=== PATIENT | female | born 1955 | race American Indian/Alaskan Native ===

== ENCOUNTER 2017-01-07 09:00 | Inpatient (IN) | payer OTHER ==
[2017-01-06 09:26] VITALS: BP 129/75
[~2017-01-07] VITALS: Ht 160 cm; Wt 83.0 kg
[~2017-01-07 09:00] MED LIST: ALBU8.5H5 INH; CHOL2000 PO; GLIP10TA13 PO; LASIX PO; MIDAZOLAM 1 MG/ML, 2ML ONE; MULT-6 PO; NPH,100V4 SQ; OMEP-110 PO; OXYC5TAB3 PO; PROP10TA PO; SPIR50TA2 PO; TRAM50TA2 PO
[2017-01-07] MEDS ORDERED: LACTATED RINGERS 1,000 ML IV SCH (09:21)
[2017-01-07] MEDS ORDERED: INSU100V8 SQ (09:27)
[2017-01-07] MEDS ORDERED: LIDOCAINE 1%, 2ML SQ PRN (09:30)
[2017-01-07] MEDS ORDERED: VANCOMYCIN 1,300 MG in SODIUM CHLORIDE 0.9% 250 ML IV ONE (09:30)
[2017-01-07] MEDS ORDERED: VANCOMYCIN PER PHARMACY MC ONE (09:30)
[2017-01-07] MEDS ORDERED: METOPROLOL 1 MG/ML, 5ML ONE (10:16)
[2017-01-07] MEDS ORDERED: ONDANSETRON 2MG/ML, 2ML ONE (10:16)
[2017-01-07] MEDS ORDERED: GLYCOPYRROLATE 0.2MG/1ML ONE (10:16)
[2017-01-07] MEDS ORDERED: ROCURONIUM 10 MG/ML ONE (10:16)
[2017-01-07] MEDS ORDERED: PROPOFOL 10 MG/ML, 20ML ONE (10:16)
[2017-01-07] MEDS ORDERED: NEOSTIGMINE 1 MG/ML, 10ML ONE (10:16)
[2017-01-07] MEDS ORDERED: EPHEDRINE 50 MG/ML, 1ML IVPush PRN ×2 (10:30→11:30)
[2017-01-07] MEDS ORDERED: MEPERIDINE/PF 25MG/0.5ML IVPush PRN ×2 (10:30→11:30)
[2017-01-07] MEDS ORDERED: HYDROmorphone 1 MG/ML, 1ML IV PRN ×2 (10:30→11:30)
[2017-01-07] MEDS ORDERED: OXYcodone 5 MG/5 ML ORAL.SOL UDC PO PRN ×2 (10:30→11:30)
[2017-01-07] MEDS ORDERED: hydrALAzine 20 MG/ML, 1ML IV PRN ×2 (10:30→11:30)
[2017-01-07] MEDS ORDERED: ALBUTEROL SULFATE 2.5 MG/3 ML NPPB PRN ×3 (10:30→14:30)
[2017-01-07] MEDS ORDERED: LABETALOL 5MG/ML, 20ML IV PRN ×2 (10:30→11:30)
[2017-01-07] MEDS ORDERED: FENTANYL PF 100 MCG/2ML IV PRN ×2 (10:30→11:30)
[2017-01-07] MEDS ORDERED: ONDANSETRON 2MG/ML, 2ML IVPush PRN ×2 (10:30→11:30)
[2017-01-07] MEDS ORDERED: METOPROLOL 1 MG/ML, 5ML IV PRN ×2 (10:30→11:30)
[2017-01-07] MEDS ORDERED: ACETAMINOPHEN 325 MG TABLET PO PRN ×3 (10:30→11:30)
[2017-01-07] MEDS: HYDROcodone/APAP 10/325 MG TABLET PO SCH ×4 (11:00→23:00)
[2017-01-07] MEDS ORDERED: SENNA/DOCUSATE TABLET PO PRN (11:00)
[2017-01-07] MEDS ORDERED: DIPHENHYDRAMINE 25 MG CAPSULE PO PRN (11:00)
[2017-01-07] MEDS ORDERED: SPIRONOLACTONE 50 MG TABLET PO PRN (11:00)
[2017-01-07] MEDS ORDERED: BISACODYL 10 MG SUPP PR PRN (11:00)
[2017-01-07] MEDS ORDERED: ONDANSETRON 2MG/ML, 2ML IV PRN (11:00)
[2017-01-07] MEDS ORDERED: PROMETHAZINE 25 MG/ML, 1ML IM PRN (11:00)
[2017-01-07] MEDS: CEFAZOLIN PMX 2GM/50ML 50 ML IVPB SCH ×2 (15:39→23:38)
[2017-01-07] MEDS: KETOROLAC 30 MG/1 ML IM SCH ×2 (15:39→23:36)
[2017-01-07] MEDS: SODIUM CHLORIDE 0.9% 1,000 ML IV SCH (15:39)
[2017-01-07 19:04] VITALS: BP 94/61
[2017-01-07] MEDS ORDERED: INSULIN DETEMIR 100 UNITS/ML, PEN SQ-INSULIN SCH (21:00)
[2017-01-07] MEDS: PROPRANOLOL 10 MG TABLET PO SCH (21:00)
[2017-01-07] MEDS: DOCUSATE 100 MG CAPSULE PO SCH ×2 (21:00→23:37)
[2017-01-08] VITALS: BP 94/56
[2017-01-08] MEDS: SODIUM CHLORIDE 0.9% 1,000 ML IV SCH (01:54)
[2017-01-08] MEDS: HYDROcodone/APAP 10/325 MG TABLET PO SCH ×3 (03:00→10:31)
[2017-01-08 03:59] VITALS: BP 94/58
[2017-01-08] MEDS: KETOROLAC 30 MG/1 ML IM SCH (06:46)
[2017-01-08] MEDS: CEFAZOLIN PMX 2GM/50ML 50 ML IVPB SCH (06:46)
[2017-01-08 08:03] VITALS: BP 89/56
[2017-01-08 08:19] VITALS: BP 91/48
[2017-01-08 08:22] VITALS: BP 91/56
[2017-01-08] MEDS: DOCUSATE 100 MG CAPSULE PO SCH (08:41)
[2017-01-08] MEDS: PROPRANOLOL 10 MG TABLET PO SCH (08:41)
[2017-01-08 08:42] VITALS: BP 96/55
[2017-01-08] MEDS ORDERED: MULTIVITAMINS/MINERALS TABLET PO SCH (09:00)
[2017-01-08] MEDS ORDERED: CHOLECALCIFEROL 1,000 UNIT TABLET PO SCH (09:00)
[2017-01-08] MEDS ORDERED: MULTIVITAMIN 1 TABLET PO SCH (09:00)
[2017-01-08] MEDS ORDERED: HYDR-3307 PO (10:41)
== END 2017-01-08 10:50 | disposition home or self-care (01) | DRG 483 ==
LOC: OUT 09:00 → ORIP 10:46 → 4NOR 13:54 → EDSTATUS 16:45 → DCLOUNGE 01-08 10:35
PROVIDERS: ADMIT Orthopaedic Surgery; ATTEND Orthopaedic Surgery
PROC: 0LS30ZZ Reposition Right Upper Arm Tendon, Open Approach (ICD-10-PCS; 2017-01-07)
PROC: 3E0T3BZ Introduction of Anesthetic Agent into Peripheral Nerves and Plexi, Percutaneous Approach (ICD-10-PCS; 2017-01-07)
PROC: 0RRJ0JZ Replacement of Right Shoulder Joint with Synthetic Substitute, Open Approach (ICD-10-PCS; principal; 2017-01-07 11:00)
DX: M19.011 Primary osteoarthritis, right shoulder (principal); M75.21 Bicipital tendinitis, right shoulder; F17.210 Nicotine dependence, cigarettes, uncomplicated; I10 Essential (primary) hypertension; E11.9 Type 2 diabetes mellitus without complications; J45.909 Unspecified asthma, uncomplicated; Z79.899 Other long term (current) drug therapy; Z79.4 Long term (current) use of insulin
CPT/HCPCS: 36415; 82962; 85610; 85730; C1713; C1776; J0690; J1885; J2250; J2405; J2704; J2710; J3370; J3490; J1815; J7030; J7050; J7120